=== PATIENT | male | born 1945 | race Caucasian/White ===

== ENCOUNTER 2023-01-15 14:47 | Inpatient (IN) | payer OTHER ==
[~2023-01-15] VITALS: Ht 172.7 cm; Wt 61.7 kg
[2023-01-15] VITALS (15 sets, daily range): BP systolic 58–105; BP diastolic 35–74
--- NOTE | 2023-01-15 14:50 | NUR ---
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 PLACED ON BED, NOT RESPONDING TO VERBAL-PAINFUL STIMULI, SATURATING AT 88% WITH NON REBREATHING MASK 15LIT O2.
[2023-01-15] MEDS ORDERED: NALOXONE HCL 0.4 MG/ML AMPUL ONE (14:57)
[2023-01-15] MEDS ORDERED: PIPERACILLIN /TAZOBACTAM 3.375 G in IV D5W 50 ML IV ONE (15:00)
[2023-01-15] MEDS ORDERED: IV NS 0.9% 1,000 ML BAG IV ONE ×2 (15:00→15:30)
[2023-01-15] MEDS ORDERED: VANCOMYCIN 1 GM in IV D5W 250 ML IV ONE ×2 (15:00→18:30)
[2023-01-15] MEDS ORDERED: AZITHROMYCIN 500 MG in IV D5W 250 ML IV ONE (15:00)
--- NOTE | 2023-01-15 15:10 | NUR ---
X-RAY TECH AT BEDSIDE
--- NOTE | 2023-01-15 15:13 | NUR ---
BLOOD DRAWN AND SWAB FOR COVID19, RAPID INFLUENZA SENT TO LAB.
--- NOTE | 2023-01-15 15:25 | NUR ---
MOVE SHEET SUBMITTED.
[2023-01-15] MEDS ORDERED: NALOXONE HCL 0.4 MG/ML AMPUL IV ONE (15:30)
[2023-01-15] MEDS ORDERED: NOREPINEPHRINE 8 MG in IV NS 0.9% 250 ML IV ONE (15:30)
[2023-01-15 15:33] LABS: BASOPHILS % (AUTO) 0.2 % (0.0-2.0); EOSINOPHILS % (AUTO) 0.1 % (0.0-6.0); HEMATOCRIT 40 % (39-51); HEMOGLOBIN 11.7 g/dL (13.5-17.5); LYMPHOCYTES # (AUTO) 0.9 K/uL (0.8-4.8); MEAN CORPUSCULAR HGB CONC 29 g/dl (31.0-36.0); MEAN CORPUSCULAR VOLUME 102 fL (80-96); MONOCYTES # (AUTO) 0.7 K/uL (0.1-1.30); NEUTROPHILS # (AUTO) 16.2 K/uL (1.8-8.9); NEUTROPHILS % (AUTO) 90.7 % (43.0-81.0); PLATELET COUNT (AUTO) 459 K/uL (150-450); RED BLOOD CELL COUNT(AUTO) 3.95 MIL/uL (4.5-6.0); WHITE BLOOD COUNT (AUTO) 17.9 K/uL (4.3-11.0)
[2023-01-15 15:37] LABS: ABG BASE EXCESS -22.6 mmol/L; ABG PCO2 66.3 mmHg (35.0-45.0); ABG PO2 82.9 mmHg (75.0-100.0); COHb 0.3 % (0.5-1.5); MetHb 0.3 % (0.0-1.5); O2Hb 85.5 % (94.0-97.0); SITE, ABG Right Brachial; VENT MODE, BG NON REBREATHER
--- NOTE | 2023-01-15 15:50 | NUR ---
PATIENT FOR INTUBATION RESP. TECH AND MD AT BEDSIDE
--- NOTE | 2023-01-15 15:55 | NUR ---
PATIENT INTUBATED BY MD WITH ETOMIDATE 10MG IV AND MCKINLEY. 70MG IV. ET TUBE- 7.0 AT 23 LIP. ATTACHED TO VENTILATOR WITH SETTING FIO2- 100, VT- 550, RATE- 24, PEEP- 5, SATURATING AT 100%RA.
--- NOTE | 2023-01-15 15:56 | NUR ---
RT NOTE: LATE ENTRY-PATIENT ORALLY INTUBATED WITH 7.0 ETT AND SECURED AT 23CM LOWER LIPLINE. BILATERAL CHEST RISE AND POSITVE COLOR CHANGE ON CAPNOMETER. PATIENT SET ON MECHANICAL VENT SETINGS PER MD ORDER. ALARMS VERIFIED AND AUDIBLE. AMBU BAG AT [facility].
[2023-01-15 15:57] LABS: CALCIUM, SERUM 9.6 mg/dL (8.5-10.1); CARBON DIOXIDE 16 mmol/L (21-32); CHLORIDE 94 mmol/L (98-107); CREATININE 5.3 mg/dL (0.6-1.3); GLUCOSE 153 mg/dL (74-106); POTASSIUM 5.5 mmol/L (3.5-5.1); SODIUM SERUM 129 mmol/L (136-145)
[2023-01-15 15:58] LABS: UREA NITROGEN, BLOOD 82 mg/dL (7-18)
[2023-01-15 16:09] LABS: ALANINE AMINOTRANSFERASE 8 U/L (12-78); ALBUMIN 1.8 g/dL (3.4-5.0); ALKALINE PHOSPHATASE 116 U/L (46-116); ASPARTATE AMINOTRANSFERASE 18 U/L (15-37); BILIRUBIN,DIRECT 0.2 mg/dL (0.0-0.2); BILIRUBIN,TOTAL 0.4 mg/dL (0.2-1.0); TOTAL PROTEIN, SERUM 7.5 g/dL (6.4-8.2)
[2023-01-15 16:13] LABS: BILIRUBIN,URINE 2+ (NEGATIVE); COLOR,URINE AMBER (YELLOW); LEUKOCYTE ESTERASE ,URINE 2+ (NEGATIVE); NITRITE, URINE POSITIVE (NEGATIVE); PH,URINE 8.5 (5.0-8.0); PROTEIN,URINE 3+ mg/dl (NEGATIVE); UGLUCOSE NEGATIVE (NEGATIVE)
[2023-01-15 16:19] LABS: RBC,URINE 0-2 /HPF (0-2)
[2023-01-15 16:20] LABS: BACTERIA,URINE Many /HPF (None Seen); SQUAMOUS EPITHELIAL CELL,UR Few /HPF (None Seen); WBC,URINE TOO NUMEROUS TO COUN /HPF (0-3)
--- NOTE | 2023-01-15 16:26 | NUR ---
CALLED [facility] [phone] DR. ABRAHAM WILL CALL US BACK.
--- NOTE | 2023-01-15 16:36 | NUR ---
DR. MCCRAY SPEAKING WITH HOSPITALIST.
[2023-01-15] MEDS ORDERED: SODIUM BICARBONATE SYR 50 MEQ/50 ML DISP.SYRIN ONE (17:21)
[2023-01-15 17:24] LABS: ABG BASE EXCESS -19.1 mmol/L; ABG PCO2 43.5 mmHg (35.0-45.0); ABG PH 7.025 (7.350-7.450); COHb 0.3 % (0.5-1.5); MetHb 0.5 % (0.0-1.5); O2Hb 98.5 % (94.0-97.0); PEEP,BG 5 cm H2O; SITE, ABG Right Brachial; VT, ABG 550 mL
[2023-01-15] MEDS ORDERED: ROCURONIUM BROMIDE 50 MG/5 ML IV ONE ×2 (17:30→23:00)
[2023-01-15] MEDS ORDERED: ETOMIDATE 2 MG/ML VIAL IV ONE ×2 (17:30→23:00)
[2023-01-15] MEDS ORDERED: SODIUM BICARBONATE SYR 50 MEQ/50 ML DISP.SYRIN IV ONE ×2 (17:30→23:00)
--- NOTE | 2023-01-15 18:25 | NUR ---
- [facility] F[facility]END
[2023-01-15] MEDS ORDERED: ONDANSETRON HCL/PF 4 MG/2 ML VIAL IVP PRN (18:30)
[2023-01-15] MEDS ORDERED: ACETAMINOPHEN 650 MG/20.3 ML UDC NG PRN (18:30)
[2023-01-15] MEDS ORDERED: IV NS 0.9% 1,000 ML IV ONE (18:30)
[2023-01-15] MEDS ORDERED: NOREPINEPHRINE 8 MG in IV NS 0.9% 250 ML IV PRN (18:30)
[2023-01-15] MEDS ORDERED: AMIODARONE 150 MG/3 ML VIAL IV ONE ×2 (18:30)
[2023-01-15] MEDS ORDERED: PROPOFOL 100 ML IV PRN ×2 (18:30→20:00)
--- NOTE | 2023-01-15 18:47 | NUR ---
GOT BED 260 ICU > 1929
--- NOTE | 2023-01-15 19:07 | NUR ---
MAY UPDATE BARI() AT [phone]
--- NOTE | 2023-01-15 19:11 | NUR ---
lactic acid reported at 4.1. trending downward from last report
[2023-01-15 19:23] LABS: ABG BASE EXCESS -16.4 mmol/L; ABG PCO2 44.5 mmHg (35.0-45.0); ABG PH 7.082 (7.350-7.450); ABG PO2 77.1 mmHg (75.0-100.0); COHb 0.3 % (0.5-1.5); MetHb 0.3 % (0.0-1.5); O2Hb 89.8 % (94.0-97.0); PEEP,BG 5 cm H2O; SITE, ABG Right Radial; VENT MODE, BG AC 24; VT, ABG 550 mL
--- NOTE | 2023-01-15 19:24 | NUR ---
RT NOTE LATE ENTRY ABG TAKEN AND CRITICAL RESULTS REPORTED TO INSTRUCTIONAL TECHNOLOGY COACH Addendum: 01/15/23 at 2221 by NIGEL FORD RT Amended: Links added.
[2023-01-15] MEDS ORDERED: IPRATROPIUM NEB FS 0.5 MG/2.5 ML AMPUL.NEB NEB SCH (19:30)
[2023-01-15] MEDS ORDERED: ALBUTEROL FS 2.5 MG/0.5 ML VIAL.NEB NEB SCH (19:30)
--- NOTE | 2023-01-15 19:48 | NUR ---
REPORT GIVEN TO LUCIANO SORENSEN ICU ROOM 260 FOR YESIKA
[2023-01-15] MEDS ORDERED: SODIUM POLYSTYRENE SULFONATE 15 G/60 ML BOTTLE ONE (19:56)
[2023-01-15] MEDS ORDERED: methylPREDNISolone SOD SUCC 125 MG/2ML VIAL IV ONE (20:00)
[2023-01-15] MEDS ORDERED: SODIUM POLYSTYRENE SULFONATE 15 G/60 ML BOTTLE PO ONE (20:00)
--- NOTE | 2023-01-15 20:25 | NUR ---
PATIENT TRANSFERED AND ADMITTED PER [facility]
[2023-01-15] MEDS ORDERED: AMIODARONE 450 MG in IV D5W 241 ML IV PRN (20:30)
[2023-01-15] MEDS ORDERED: NOREPINEPHRINE 32 MG in IV NS 0.9% 218 ML IV PRN (20:30)
[2023-01-15] MEDS ORDERED: AMIODARONE 150 MG in IV D5W 100 ML IV ONE (20:30)
--- NOTE | 2023-01-15 20:30 | NUR ---
RN ADMITTING NOTE RECEIVED PT FROM ER VIA DAMIONRJOYCE ACCOMPANIED BY 2 ER STAFF, TRANSFERRED TO BED VIA 3 PERSON ASSIST. PT IS OBTUNDED, SATURATION AT 96% ON ET TUBE CONNECTED TO MECHANICAL VENT WITH PRESCRIBED SETTINGS: AC 24, TV 550, FIO2 65%, PEEP 5, AFIB ON THE MONITOR HR IS 123. IV LINE AT RAC 20G, AND L HAND 20G PATENT AND FLUSHING WELL, LEVO INFUSING AT 1 MCG/KG/MIN, STARTED IV FLUID OF NS AT 100ML/HR PER MD ORDERS. FISH CATHETER DRAINING TO A CLOUDY, GREENISH OUTPUT, MINIMAL OUTPUT NOTED. COMPREHENSIVE ASSESSMENT DONE, NOTED DTI AT MID BACK, LOWER BACK AND SACRAL AREA, REDNESS AT PERINEAL/PERIANAL AREA, AND DTI A B HEELS, PHOTOS TAKEN AND PLACED AT CHART. SAFETY MEASURES IN PLACE, BED IS LOCKED AND AT LOWEST POSITION, HOB ELEVATED. WILL CONT TO MONITOR AND CARRY OUT MD ORDERS.
[2023-01-15] MEDS ORDERED: METRONIDAZOLE 500MG/ NS 100ML 500 MG in PREMIX 1 EA IV SCH (21:00)
--- NOTE | 2023-01-15 22:19 | NUR ---
RT NOTE VENT CHANGES MADE PER [employer] [facility] KNITTER ORDERS. RR INCREASED TO 28 Addendum: 01/15/23 at 2219 by NIGEL FORD RT Amended: Links added.
[2023-01-15] MEDS ORDERED: PHENYLEPHRINE 10 MG/ML VIAL ONE (22:50)
--- NOTE | 2023-01-15 22:53 | NUR ---
RN NOTE PT NOTED WITH HR SLOWING DOWN, AND WENT TO ASYSTOLE ON THE MONITOR, WENT TO CHECK PATIENT, PULSE NOT APPRECIATED CONFIRMED WITH CREDIT REVIEW MANAGER MIKE AND WITH USE OF DOPPLER. ANTIONETTE PARR WAS CALLED, CPR STARTED. TOTAL OF 3 EPI'S, 1 SODIUM BICARB, AND CALCIUM GIVEN. PT PRONOUNCED BY DR ELENA AT 2301.
[2023-01-15] MEDS ORDERED: PHENYLEPHRINE 100 MG in IV NS 0.9% 240 ML IV PRN (23:00)
[2023-01-15] MEDS ORDERED: EPINEPHRINE (1:10,000) SYRINGE 1 MG/10 ML DISP.SYRIN IVP ONE (23:00)
[2023-01-15] MEDS ORDERED: CALCIUM CHLORIDE 1,000 MG/10 ML DISP.SYRIN IV ONE (23:00)
--- NOTE | 2023-01-15 23:15 | NUR ---
@5502 PATIENT CODED CPR INITIATED. ER MD AT BEDSIDE. @3672 PT .
--- NOTE | 2023-01-15 23:19 | NUR ---
RN NOTE TELEPHONE CALL TO [facility], SPOKE WITH RANGEL Steel, STATED PT NOT ELIGIBLE FOR ORGAN DONATION DUE TO DEMENTIA, WITH REFERENCE# [id number], AND BODY MAY BE RELEASED TO FAMILY. TELEPHONE CALL TO TRANSFORMATION ARCHITECT, SPOKE WITH ELENI WHO STATED NOT A TRANSFORMATION ARCHITECT'S CASE. DR CORONADO AND WILIAN GIPSON WAS NOTIFIED.
[2023-01-16] MEDS ORDERED: ZOSYN IVPB 2.25 G in IV D5W 50ml IV SCH ×2
[2023-01-16] MEDS ORDERED: PIPERACILLIN /TAZOBACTAM 3.375 G in IV D5W 50 ML IV SCH ×2
[2023-01-16] MEDS ORDERED: APIXABAN 5 MG TABLET PO SCH (09:00)
[2023-01-16] MEDS ORDERED: PANTOPRAZOLE 40 MG VIAL IV SCH (09:00)
[2023-01-16] MEDS ORDERED: methylPREDNISolone SOD SUCC 40 MG/ML VIAL IV SCH (09:00)
== END 2023-01-15 23:01 | DRG 871 ==
LOC: ER 14:56 → ICU 19:26
PROVIDERS: ADMIT Registered Nurse; ATTEND Registered Nurse
PROC: 5A1935Z Respiratory Ventilation, Less than 24 Consecutive Hours (ICD-10-PCS; principal; 2023-01-15)
PROC: 0BH17EZ Insertion of Endotracheal Airway into Trachea, Via Natural or Artificial Opening (ICD-10-PCS; 2023-01-15)
PROC: 02HV33Z Insertion of Infusion Device into Superior Vena Cava, Percutaneous Approach (ICD-10-PCS; 2023-01-15)
PROC: B548ZZA Ultrasonography of Superior Vena Cava, Guidance (ICD-10-PCS; 2023-01-15)
PROC: 5A2204Z Restoration of Cardiac Rhythm, Single (ICD-10-PCS; 2023-01-15)
DX: A41.9 Sepsis, unspecified organism (principal); G93.41 Metabolic encephalopathy; J69.0 Pneumonitis due to inhalation of food and vomit; R65.21 Severe sepsis with septic shock; J96.02 Acute respiratory failure with hypercapnia; J96.01 Acute respiratory failure with hypoxia; N39.0 Urinary tract infection, site not specified; N17.9 Acute kidney failure, unspecified; E87.1 Hypo-osmolality and hyponatremia; E87.20 Acidosis, unspecified; J44.1 Chronic obstructive pulmonary disease with (acute) exacerbation; R64 Cachexia; G20 Parkinson's disease; F02.80 Dementia in other diseases classified elsewhere, unspecified severity, without behavioral disturbance, psychotic disturbance, mood disturbance, and anxiety; Z86.73 Personal history of transient ischemic attack (TIA), and cerebral infarction without residual deficits; Z79.899 Other long term (current) drug therapy; B96.89 Other specified bacterial agents as the cause of diseases classified elsewhere; I48.91 Unspecified atrial fibrillation; E87.5 Hyperkalemia; N18.9 Chronic kidney disease, unspecified; I49.9 Cardiac arrhythmia, unspecified; Z68.20 Body mass index [BMI] 20.0-20.9, adult
CPT/HCPCS: 31720; 36415; 36600; 70450-TC; 71045-TC; 76770-TC; 80048-TC; 80076-TC; 81001; 82533; 82803-TC; 82962-TC; 83605-TC; 83880; 84484-TC; 85025-TC; 85730-TC; 87040-TC; 87081-TC; 87086-TC; 93307-TC; 94002-TC; 94799-TC; 99082-TC; A4216; A4223; A6403; C9803; G0378; J0171; J0282; J0456; J2310; J2370; J2543; J2930; J3370; J3490; J7030; J7050; J7060